=== PATIENT | female | born 1975 | race Caucasian/White ===

== ENCOUNTER 2022-12-16 16:37 | Emergency (ER) | payer BC ==
[~2022-12-16] VITALS: Ht 160 cm; Wt 70.3 kg
[2022-12-16 17:06] VITALS: BP 142/68; TEMP 98.7
[2022-12-16] MEDS ORDERED: IBUPROFEN 600 MG TABLET ONE (17:20)
[2022-12-16] MEDS ORDERED: SILV20CR13 TP (17:24)
[2022-12-16] MEDS ORDERED: IBUPROFEN 600 MG TABLET PO ONE (17:30)
[2022-12-16] MEDS ORDERED: SILVER SULFADIAZINE CREAM 25 GM TUBE TP ONE (17:30)
[2022-12-16] MEDS ORDERED: SILVER SULFADIAZINE CREAM 25 GM TUBE ONE (17:31)
[2022-12-16 17:33] VITALS: O2SAT 100
== END 2022-12-16 17:34 | disposition home or self-care (01) ==
LOC: ER 16:51
DX: T23.201A Burn of second degree of right hand, unspecified site, initial encounter (principal); J45.909 Unspecified asthma, uncomplicated; X10.1XXA Contact with hot food, initial encounter; Y93.89 Activity, other specified; Y92.89 Other specified places as the place of occurrence of the external cause; Y99.8 Other external cause status